=== PATIENT | male | born 1955 | race Caucasian/White ===

== ENCOUNTER → 2017-03-11 | Outpatient (CLI) | payer MEDICARE | LOC: EMI 12:44 | DX: M86.9 Osteomyelitis, unspecified (principal); L02.611 Cutaneous abscess of right foot | CPT/HCPCS: 73718 ==

== ENCOUNTER → 2021-03-29 | Outpatient (CLI) | payer MEDICARE, OTHER | LOC: KOH-I 14:31 | DX: I73.9 Peripheral vascular disease, unspecified (principal) | CPT/HCPCS: 93922; 93925 ==